=== PATIENT | female | born 1990 | race Caucasian/White ===

== ENCOUNTER 2021-02-20 22:26 | Inpatient (IN) | payer OTHER ==
[2021-02-20 22:51] VITALS: BMI 31.1
[2021-02-20] MEDS ORDERED: hydrALAZINE 20 MG/ML VIAL SLOW IVP PRN (23:43)
[2021-02-20] MEDS ORDERED: Butorphanol Tartrate 1 MG/ML VIAL SLOW IVP PRN (23:43)
[2021-02-20] MEDS ORDERED: Zolpidem Tartrate 5 MG TAB PO PRN (23:43)
[2021-02-20] MEDS ORDERED: Ondansetron PF 4 MG/2 ML Vial IVP PRN (23:43)
[2021-02-20] MEDS ORDERED: Lactated Ringer's 1,000 ML IV SCH (23:45)
[2021-02-21 02:37] LABS: Hemoglobin 12.2 g/dL (12.0-15.5); Mean Corpuscular HGB CONC 33.9 g/dL (32.0-36.0); Mean Corpuscular Hemoglobin 29.5 pg (27.0-33.0); Mean Corpuscular Volume 87.2 fl (81.6-98.3); Mean Platelet Volume 12.2 fl (7.4-10.4); Platelet Count 247 10x3/uL (150-450); Red Blood Cell (RBC) Count 4.13 10x6/uL (3.90-5.03); White Blood Cell (WBC) Count 17.2 10x3/uL (3.5-10.5)
[2021-02-21 03:06] LABS: Hep B Surf Ag Non-Reactive S/CO (NonReactive)
[2021-02-21 03:08] LABS: Syphilis Antibody Nonreactive (Nonreactive); Syphilis Antibody Index 0.03 S/CO (<1.00 Non-Reactive)
[2021-02-21 03:19] LABS: HBSAg Index 0.14 S/CO (0-0.99)
[2021-02-21] MEDS: Lactated Ringer's 1,000 ML IV SCH ×2 (09:05→11:00)
[2021-02-21] MEDS ORDERED: Phenylephrine 40 MG/NS 250 ML 250 ML ONE (11:16)
[2021-02-21] MEDS ORDERED: Ondansetron PF 4 MG/2 ML Vial ONE (11:16)
[2021-02-21] MEDS ORDERED: Oxytocin 10 UNITS/ML VIAL ONE (11:16)
[2021-02-21] MEDS ORDERED: Dexamethasone 4 mg/ml Vial ONE (11:16)
[2021-02-21] MEDS ORDERED: PHENYLEPHRINE-NS 100 MCG/ML 10 ML SYRINGE ONE (11:16)
[2021-02-21] MEDS ORDERED: Morphine PF 10 MG/10 ML VIAL ONE (12:00)
[2021-02-21] MEDS ORDERED: Famotidine/PF 20 mg/2ml Vial ONE (12:00)
[2021-02-21 12:45] LABS: SARS-CoV-2 NAA Rapid Test Not Detected (NotDetected)
[2021-02-21] MEDS ORDERED: Ketorolac Tromethamine 30 MG/ML VIAL ONE (13:43)
[2021-02-21] MEDS ORDERED: Promethazine HCl 25 MG SUPP PR PRN (13:56)
[2021-02-21] MEDS ORDERED: HYDROmorphone 2 MG/ML VIAL SLOW IVP PRN (13:56)
[2021-02-21] MEDS ORDERED: Meperidine HCl/PF 25 MG/ML VIAL SLOW IVP PRN (13:56)
[2021-02-21] MEDS ORDERED: diphenhydrAMINE 50 MG/ML VIAL IVP PRN (13:56)
[2021-02-21] MEDS ORDERED: Promethazine HCl 25 MG/ML VIAL IM PRN ×2 (13:56→17:08)
[2021-02-21] MEDS ORDERED: Naloxone HCl 0.4 mg/ml Vial IVP PRN ×2 (13:56)
[2021-02-21] MEDS ORDERED: Ondansetron PF 4 MG/2 ML Vial IVP PRN ×2 (13:56→17:08)
[2021-02-21] MEDS ORDERED: Ketorolac Tromethamine 30 MG/ML VIAL IVP PRN (13:56)
[2021-02-21] MEDS ORDERED: Naloxone HCl 0.4 mg/ml Vial IV PRN (13:56)
[2021-02-21] MEDS ORDERED: Hydrocerin (Eucerin) Cream 120 gm Jar TOP PRN (13:56)
[2021-02-21] MEDS ORDERED: Ondansetron HCl/PF 4 MG/2 ML Vial IVP PRN (13:56)
[2021-02-21] MEDS ORDERED: L&D-Morphine 4 MG/ML VIAL SLOW IVP PRN (13:56)
[2021-02-21] MEDS ORDERED: Ketorolac Tromethamine 30 MG/ML VIAL IVP SCH (14:00)
[2021-02-21] MEDS ORDERED: Communication Order-Pharmacy FS SCH (14:00)
[2021-02-21] MEDS ORDERED: Meperidine HCl/PF 25 MG/ML VIAL ONE (15:11)
[2021-02-21] MEDS ORDERED: NS w/ Oxytocin 30 units 500 ML ONE (15:12)
[2021-02-21] MEDS ORDERED: hydrALAZINE 20 MG/ML VIAL SLOW IVP PRN (17:08)
[2021-02-21] MEDS ORDERED: Zolpidem Tartrate 5 MG TAB PO PRN (17:08)
[2021-02-21] MEDS ORDERED: Measles/Mumps/Rubella 10 MCG/0.5 ML VIAL SC ONE (17:08)
[2021-02-21] MEDS ORDERED: diphenhydrAMINE 25 MG CAP PO PRN (17:08)
[2021-02-21] MEDS ORDERED: Simethicone Chewable 80 MG TAB PO PRN (17:08)
[2021-02-21] MEDS ORDERED: Varicella virus, LIVE 0.5 ML VIAL SC ONE (17:08)
[2021-02-21] MEDS ORDERED: Lanolin Ointment 7 GM TUBE TOP PRN (17:08)
[2021-02-21] MEDS ORDERED: NS w/ Oxytocin 30 units 500 ML IV SCH (17:08)
[2021-02-21] MEDS ORDERED: Boostrix 0.5 ML (Tdap) VIAL IM ONE (17:08)
[2021-02-21] MEDS: Enoxaparin Sodium 40 MG/0.4 ML SYRINGE SC SCH (20:31)
[2021-02-21] MEDS: Docusate Calcium (SURFAK) 240 MG CAP PO SCH (20:32)
[2021-02-22 06:40] LABS: Hemoglobin 10.1 g/dL (12.0-15.5); Mean Corpuscular HGB CONC 33.7 g/dL (32.0-36.0); Mean Corpuscular Hemoglobin 29.3 pg (27.0-33.0); Mean Platelet Volume 12.3 fl (7.4-10.4); Platelet Count 208 10x3/uL (150-450); RBC Distribution Width 12.7 % (11.5-14.5); Red Blood Cell (RBC) Count 3.45 10x6/uL (3.90-5.03)
[2021-02-22] MEDS: HYDROcodone/Acetaminophen 5/325 mg Tablet PO PRN ×3 (08:13→23:30)
[2021-02-22] MEDS: Docusate Calcium (SURFAK) 240 MG CAP PO SCH ×2 (08:13→20:45)
[2021-02-22] MEDS: Prenatal Vitamin 1 TAB PO SCH (08:13)
[2021-02-22] MEDS: Ibuprofen 800 MG TAB PO SCH ×2 (13:11→20:45)
[2021-02-22] MEDS: Enoxaparin Sodium 40 MG/0.4 ML SYRINGE SC SCH (20:46)
[2021-02-23] MEDS: Ibuprofen 800 MG TAB PO SCH ×3 (04:40→22:06)
[2021-02-23] MEDS: HYDROcodone/Acetaminophen 5/325 mg Tablet PO PRN ×5 (04:41→22:04)
[2021-02-23] MEDS ORDERED: Boostrix 0.5 ML (Tdap) VIAL IM ONE (08:00)
[2021-02-23] MEDS ORDERED: Measles/Mumps/Rubella 10 MCG/0.5 ML VIAL SC ONE (08:00)
[2021-02-23] MEDS ORDERED: Varicella virus, LIVE 0.5 ML VIAL SC ONE (08:00)
[2021-02-23] MEDS: Docusate Calcium (SURFAK) 240 MG CAP PO SCH ×2 (08:52→22:04)
[2021-02-23] MEDS: Prenatal Vitamin 1 TAB PO SCH (08:53)
[2021-02-23] MEDS: Enoxaparin Sodium 40 MG/0.4 ML SYRINGE SC SCH (22:06)
[2021-02-24] MEDS: HYDROcodone/Acetaminophen 5/325 mg Tablet PO PRN ×2 (03:22→10:38)
[2021-02-24] MEDS: Ibuprofen 800 MG TAB PO SCH (06:33)
[2021-02-24 08:04] VITALS: BP 112/64; TEMP 98.1
[2021-02-24] MEDS: Prenatal Vitamin 1 TAB PO SCH (08:12)
[2021-02-24] MEDS: Docusate Calcium (SURFAK) 240 MG CAP PO SCH (08:13)
== END 2021-02-24 12:58 | disposition home or self-care (01) | DRG 788 ==
LOC: CSHLD/OP 22:26 → CSHLD 02-21 10:59 → CSHPP 02-21 17:30
PROVIDERS: ADMIT Obstetrics & Gynecology; ATTEND Obstetrics & Gynecology
PROC: 10D00Z1 Extraction of Products of Conception, Low, Open Approach (ICD-10-PCS; principal; 2021-02-22)
DX: O34.211 Maternal care for low transverse scar from previous cesarean delivery (principal); Z20.822 Contact with and (suspected) exposure to COVID-19; Z86.711 Personal history of pulmonary embolism; Z79.01 Long term (current) use of anticoagulants; Z3A.38 38 weeks gestation of pregnancy; Z37.0 Single live birth; Z88.0 Allergy status to penicillin
CPT/HCPCS: 36415; 85027; 86780; 86850; 86900; 86901; 87340; J1100; J1650; J1885; J2175; J2274; J2405; J2590; S0028; U0002